=== PATIENT | female | born 1980 | race Caucasian/White ===

== ENCOUNTER 2016-12-21 15:04 | Emergency (ER) | payer BC ==
[2016-12-21 15:21] VITALS: BP 133/76
--- NOTE | 2016-12-21 15:38 | UC ---
Asthma HPI - HPI Summary HPI Summary: Cough for 3 days, nasal drainage, chest tightness, CP when coughing, c/o asthma exacerbation. Reports neg heart cath 2016. She gets this annually and is terated with alb, zpack and prednisone. + asthma hx and has never needed daily maintenance steroid, only alb prn. She last used ut 4 hrs ago at work. She does have a neb machine at home. no fevers, no sinus pain but is getting thick green mucous from nose. h/o tubal ligation. not - History of Current Complaint Chief Complaint: UCRespiratory Stated Complaint: upper respiratory,asthma Time Seen by Provider: 12/21/16 15:35 Hx Last Menstrual Period: today - Allergy/Home Medications Allergies/Adverse Reactions: Allergies Allergy/AdvReac Type Severity Reaction Status Date / Time Cefuroxime [From Ceftin] AdvReac Intermediate GI Upset Verified 12/21/16 15:20 Home Medications: Home Medications Albuterol HFA INHALER* [Ventolin HFA Inhaler*] 2 puff INH Q6H PRN 12/21/16 [ History Confirmed 12/21/16] Atorvastatin* [Lipitor 20 MG*] 20 mg PO QAM 12/21/16 [History Confirmed 12/21/16 ] PMH/Surg Hx/FS Hx/Imm Hx Previously Healthy: Yes Respiratory History: Asthma - Surgical History Surgical History: Yes Surgery Procedure, Year, and Place: T & A. GALL BLADDER REMOVAL. TUBAL LIGATION - Family History Known Family History: Positive: Cardiac Disease - father massive [place] and at age 43, Hypertension, Diabetes - Social History Alcohol Use: Occasionally Substance Use Type: None Smoking Status (MU): Former Smoker Type: Cigarettes Amount Used/How Often: 5 CIGS PPER DAY When Did the Patient Quit Smoking/Using Tobacco: 3 months ago Review of Systems Constitutional: Negative Skin: Negative Eyes: Negative ENT: Negative, Nasal Discharge Respiratory: Cough Cardiovascular: Negative Gastrointestinal: Negative Genitourinary: Negative Motor: Negative Neurovascular: Negative Musculoskeletal: Negative Neurological: Negative Psychological: Negative All Other Systems Reviewed And Are Negative: Yes Physical Exam Triage Information Reviewed: Yes Appearance: Well-Appearing, No Pain Distress, Well-Nourished, Ill-Appearing - mild cough. no stridor. speaks full senetences. Vital Signs: Initial Vital Signs Temp 97.7 F 12/21/16 15:13 Pulse 76 12/21/16 15:13 Resp 18 12/21/16 15:13 BP 133/76 12/21/16 15:13 Pulse Ox 100 12/21/16 15:13 Vital Signs Reviewed: Yes Eye Exam: Normal ENT Exam: Normal ENT: Positive: Pharynx normal - +PND, TMs normal, Other: - no max or frontal tenderness. Negative: Tonsillar swelling, Tonsillar exudate, Muffled/hoarse voice Dental Exam: Normal Neck exam: Normal Neck: Positive: Supple, Nontender, No Lymphadenopathy Respiratory: Positive: No respiratory distress, No accessory muscle use, Decreased breath sounds, Wheezing. Negative: Crackles, Rhonchi, Stridor Cardiovascular Exam: Normal Cardiovascular: Positive: RRR, No Murmur, Pulses Normal, Brisk Capillary Refill Abdominal Exam: Normal Abdomen Description: Positive: Nontender, Soft Musculoskeletal Exam: Normal Neurological Exam: Normal Psychological Exam: Normal Skin Exam: Normal Asthma Course/Dx - Course Course Of Treatment: We discusse risks of prednisone including but not limited to anxiety, agitation, insomnia, GI upset, elevated blood pressures and blood sugar readings, adrenal crisis and avascular necrosis of the hip. She states she gets this annually and is treated with zpack and prednisone. Previous prednisone dose prescribed again today. - Differential Dx/Diagnosis Differential Diagnosis/HQI/PQRI: Acute Asthma, Bronchitis, Reactive Airway Disease Provider Diagnoses: Asthma exacerbation, bronchitis. Discharge - Discharge Plan Condition: Stable Disposition: HOME Prescriptions: Albuterol 2.5MG/3ML (0.083%)* [Ventolin 2.5 MG/3 ML NEB.ANTONINO*] 2.5 mg INH Q4H #1 neb.antonino Albuterol HFA INHALER* [Ventolin HFA Inhaler*] 2 puff INH Q4H PRN #1 mdi PRN Reason: Cough Azithromyxin BRITTON (NF) [Z-Britton (Zithromax) 250 mg tabs #6] 250 mg PO .ZPAK INSTRUCTIONS #6 tab Prednisone 40 mg PO DAILY #10 tab Patient Education Materials: Bronchospasm (ED), Asthma (ED) Referrals: Sil Muse MD [Primary Care Provider] - 2 Days Additional Instructions: Increase fluids and rest. you should use albuterol every 4-6 hrs until you feel better, preferably through nebulizer form when available. Please come back if symptoms increase.
== END 2016-12-21 16:24 | disposition home or self-care (01) ==
LOC: UCCORT 15:04
DX: J45.901 Unspecified asthma with (acute) exacerbation (principal); Z90.49 Acquired absence of other specified parts of digestive tract; Z88.1 Allergy status to other antibiotic agents; Z87.891 Personal history of nicotine dependence
CPT/HCPCS: 99212; G0463

== ENCOUNTER 2017-07-16 07:33 | Emergency (ER) | payer BC, OTHER ==
[2017-07-16 08:01] VITALS: BP 128/68
--- NOTE | 2017-07-16 08:20 | UC ---
Respiratory Complaint HPI - HPI Summary HPI Summary: pt c/o cough,nasal congestion, and chest tightness X 2days. Has history of asthma. Has rescue inhaler at home, has not been using. - History of Current Complaint Chief Complaint: UCUpperExtremity Stated Complaint: LEFT SHOULDER INJURY WC Time Seen by Provider: 07/16/17 07:51 Hx Obtained From: Patient Hx Last Menstrual Period: 06/14/17 ?: No Onset/Duration: Gradual Onset, Lasting Days, Still Present Timing: Intermittent Episodes Severity Initially: Mild Severity Currently: Mild Character: Cough: Nonproductive Aggravating Factors: Allergens, Exertion, Deep Breaths, Recumbent Position Associated Signs And Symptoms: Positive: Nasal Congestion Related History: Seasonal Allergies - Risk Factors Pulmonary Embolism Risk Factors: Negative Cardiac Risk Factors: Negative Pseudomonas Risk Factors: Negative Tuberculosis Risk Factors: Negative - Allergies/Home Medications Allergies/Adverse Reactions: Allergies Allergy/AdvReac Type Severity Reaction Status Date / Time Cefuroxime [From Ceftin] AdvReac Intermediate GI Upset Verified 07/16/17 08:01 Home Medications: Home Medications Albuterol 2.5MG/3ML (0.083%)* [Ventolin 2.5 MG/3 ML NEB.ANTONINO*] 2.5 mg INH Q4H PRN 07/16/17 [History Confirmed 07/16/17] PMH/Surg Hx/FS Hx/Imm Hx Previously Healthy: Yes - lupus - Surgical History Surgical History: Yes Surgery Procedure, Year, and Place: T & A. GALL BLADDER REMOVAL. TUBAL LIGATION - Family History Known Family History: Positive: Cardiac Disease - father massive [place] and at age 43, Hypertension, Diabetes - Social History Occupation: Employed Full-time Lives: With Family Alcohol Use: Occasionally Substance Use Type: None Smoking Status (MU): Former Smoker Type: Cigarettes Amount Used/How Often: 5 CIGS PPER DAY Have You Smoked in the Last Year: Yes When Did the Patient Quit Smoking/Using Tobacco: 3 months ago Review of Systems Constitutional: Negative Skin: Negative Eyes: Negative ENT: Other - nasal congestion Respiratory: Cough Cardiovascular: Negative Gastrointestinal: Negative Genitourinary: Negative Motor: Negative Neurovascular: Negative Musculoskeletal: Negative - shoulder, Arthralgia Neurological: Negative Psychological: Negative Is Patient Immunocompromised?: No All Other Systems Reviewed And Are Negative: Yes Physical Exam Triage Information Reviewed: Yes Appearance: Well-Appearing Vital Signs: Initial Vital Signs Temp 97.7 F 07/16/17 07:55 Pulse 72 07/16/17 07:55 Resp 18 07/16/17 07:55 BP 128/68 07/16/17 07:55 Pulse Ox 99 07/16/17 07:55 Vital Signs Reviewed: Yes Eye Exam: Normal ENT Exam: Other ENT: Positive: Nasal congestion Dental Exam: Normal Neck exam: Normal Respiratory Exam: Normal Cardiovascular Exam: Normal Musculoskeletal: Positive: ROM Limited @ Neurological Exam: Normal Psychological Exam: Normal Skin Exam: Normal UC Diagnostic Evaluation - Laboratory O2 Sat by Pulse Oximetry: 99 Respiratory Course/Dx - Differential Dx/Diagnosis Differential Diagnosis/HQI/PQRI: Asthma, Bronchitis, Exacerbation Of COPD Provider Diagnoses: URI. viral syndrome Discharge - Discharge Plan Condition: Stable Disposition: HOME Prescriptions: Benzonatate CAP* [Tessalon 100 MG CAP*] 100 mg PO Q8H PRN #21 cap PRN Reason: Cough predniSONE TAB* [Deltasone TAB*] 30 mg PO DAILY #12 tab Patient Education Materials: Upper Respiratory Infection (ED), Acute Cough (ED) Referrals: Sil Muse MD [Primary Care Provider] - If Needed Additional Instructions: Please follow up with your PCP or return to clinic as needed. Please use your albuterol Inhaler as needed for Shortness of breath, wheezing and/or chest congestion.
--- NOTE | 2017-07-16 08:28 | UC ---
Shoulder Pain HPI - HPI Summary HPI Summary: pt c/o left shoulder pain s/p restaringina a client at work and stating that " he pulled my left arm backwards and I hear a pop in my left shoulder with sudden onset of pain" . Pt states that she continued to work for remainder of day without c/o of decreased ROM or significant pain or deformity. - History of Current Complaint Chief Complaint: UCUpperExtremity Stated Complaint: LEFT SHOULDER INJURY WC Time Seen by Provider: 07/16/17 07:51 Hx Obtained From: Patient Hx Last Menstrual Period: 06/14/17 ?: No Onset/Duration: Sudden Onset, Worse Since - onset 1 day ago Timing: Constant Severity Initially: Moderate Severity Currently: Mild Location Of Pain: Is Discrete @ - left shoulder Character: Dull, Aching, Stiffness Aggravating Factor(s): Movement Alleviating Factor(s): Rest Associated Signs And Symptoms: Positive: Negative Related History: Dominant Hand Right - Risk Factors Non-Orthopedic Risk Factor: Negative DVT Risk Factors: Smoking Septic Arthritis Risk Factor: Negative - Allergies/Home Medications Allergies/Adverse Reactions: Allergies Allergy/AdvReac Type Severity Reaction Status Date / Time Cefuroxime [From Ceftin] AdvReac Intermediate GI Upset Verified 07/16/17 08:01 Home Medications: Home Medications Albuterol 2.5MG/3ML (0.083%)* [Ventolin 2.5 MG/3 ML NEB.ANTONINO*] 2.5 mg INH Q4H PRN 07/16/17 [History Confirmed 07/16/17] PMH/Surg Hx/FS Hx/Imm Hx Previously Healthy: Yes - Surgical History Surgical History: Yes Surgery Procedure, Year, and Place: T & A. GALL BLADDER REMOVAL. TUBAL LIGATION - Family History Known Family History: Positive: Cardiac Disease - father massive [place] and at age 43, Hypertension, Diabetes - Social History Occupation: Employed Full-time Lives: With Family Alcohol Use: Occasionally Substance Use Type: None Smoking Status (MU): Former Smoker Type: Cigarettes Amount Used/How Often: 5 CIGS PPER DAY Have You Smoked in the Last Year: Yes When Did the Patient Quit Smoking/Using Tobacco: 3 months ago Review of Systems Constitutional: Negative Skin: Negative Eyes: Negative ENT: Negative Respiratory: Cough Cardiovascular: Negative Gastrointestinal: Negative Genitourinary: Negative Motor: Decreased ROM - left shoulder Neurovascular: Negative Musculoskeletal: Arthralgia - left shoulder, Decreased ROM - left shoulder, Myalgia Neurological: Negative Psychological: Negative Is Patient Immunocompromised?: No All Other Systems Reviewed And Are Negative: Yes Physical Exam Triage Information Reviewed: Yes Appearance: Well-Appearing Vital Signs: Initial Vital Signs Temp 97.7 F 07/16/17 07:55 Pulse 72 07/16/17 07:55 Resp 18 07/16/17 07:55 BP 128/68 07/16/17 07:55 Pulse Ox 99 07/16/17 07:55 Vital Signs Reviewed: Yes Eye Exam: Normal ENT Exam: Other ENT: Positive: Nasal congestion Dental Exam: Normal Neck exam: Normal Respiratory Exam: Normal Cardiovascular Exam: Normal Musculoskeletal Exam: Other Musculoskeletal: Positive: ROM Limited @ - left shoulder, pt tenderness at AC joint Neurological Exam: Normal Psychological Exam: Normal Skin Exam: Normal Shoulder Course/Dx - Course Course Of Treatment: IMPRESSION: Negative radiographic exam of the LEFT shoulder. - Differential Dx/Diagnosis Differential Diagnosis/HQI/PQRI: Dislocation, Fracture (Closed), Rotator Cuff Injury, Sprain, Strain Provider Diagnoses: left shoulder strain. IMPRESSION: Negative radiographic exam of the LEFT shoulder. Discharge - Discharge Plan Condition: Stable Disposition: HOME Prescriptions: Benzonatate CAP* [Tessalon 100 MG CAP*] 100 mg PO Q8H PRN #21 cap PRN Reason: Cough predniSONE TAB* [Deltasone TAB*] 30 mg PO DAILY #12 tab Patient Education Materials: Upper Respiratory Infection (ED), Acute Cough (ED) Referrals: Sil Muse MD [Primary Care Provider] - If Needed Additional Instructions: Please follow up with your PCP or return to clinic as needed. Please use your albuterol Inhaler as needed for Shortness of breath, wheezing and/or chest congestion.
--- NOTE | 2017-07-16 08:43 | RAD ---
Indication: LEFT shoulder pain following pulling injury yesterday. Comparison: No relevant prior exams available on the [facility] for comparison. Technique: Internal rotation AP, external rotation Grashey, scapular Y, axillary views LEFT shoulder Report: Normal acromioclavicular and glenohumeral joint alignment. Negative for fracture. No significant arthropathic change evident. Negative for stigmata of calcific tendinopathy. Unremarkable soft tissue contours. IMPRESSION: Negative radiographic exam of the LEFT shoulder.
== END 2017-07-16 09:01 | disposition home or self-care (01) ==
LOC: UCCORT 07:33
DX: S43.402A Unspecified sprain of left shoulder joint, initial encounter (principal); X50.0XXA Overexertion from strenuous movement or load, initial encounter; Y93.F9 Activity, other caregiving; Y92.9 Unspecified place or not applicable; Y99.0 Civilian activity done for income or pay; Z72.89 Other problems related to lifestyle; Z87.891 Personal history of nicotine dependence
CPT/HCPCS: 99211; G0463

== ENCOUNTER 2017-07-16 07:35 | Emergency (ER) | payer BC ==
[2017-07-16 08:05] VITALS: BP 128/68
--- NOTE | 2017-07-16 08:28 | UC ---
Respiratory Complaint HPI - HPI Summary HPI Summary: pt c/o cough,nasal congestion, and chest tightness X 2days. Has history of asthma. Has rescue inhaler at home, has not been using. - History of Current Complaint Chief Complaint: UCRespiratory Stated Complaint: CHEST CONGESTION ASTHMA Time Seen by Provider: 07/16/17 07:51 Hx Obtained From: Patient Hx Last Menstrual Period: 06/14/17 ?: No Onset/Duration: Gradual Onset, Lasting Days, Still Present Timing: Intermittent Episodes Severity Initially: Mild Severity Currently: Mild Character: Cough: Nonproductive Aggravating Factors: Allergens, Exertion, Deep Breaths, Recumbent Position Alleviating Factors: Spontaneous Resolution Associated Signs And Symptoms: Positive: URI, Nasal Congestion - Risk Factors Pulmonary Embolism Risk Factors: Smoking Cardiac Risk Factors: Smoking Pseudomonas Risk Factors: Chronic Lung Disease - asthma Tuberculosis Risk Factors: Smoking - Allergies/Home Medications Allergies/Adverse Reactions: Allergies Allergy/AdvReac Type Severity Reaction Status Date / Time Cefuroxime [From Ceftin] AdvReac Intermediate GI Upset Verified 07/16/17 08:01 PMH/Surg Hx/FS Hx/Imm Hx Previously Healthy: Yes - lupus Respiratory History: Asthma - Surgical History Surgical History: Yes Surgery Procedure, Year, and Place: T & A. GALL BLADDER REMOVAL. TUBAL LIGATION - Family History Known Family History: Positive: Cardiac Disease - father massive [place] and at age 43, Hypertension, Diabetes - Social History Occupation: Employed Full-time Lives: With Family Alcohol Use: Occasionally Substance Use Type: None Smoking Status (MU): Former Smoker Type: Cigarettes Amount Used/How Often: 5 CIGS PPER DAY Have You Smoked in the Last Year: Yes When Did the Patient Quit Smoking/Using Tobacco: 3 months ago Review of Systems Constitutional: Negative Skin: Negative Eyes: Negative ENT: Other - nasalcongestion Respiratory: Cough Cardiovascular: Negative Gastrointestinal: Negative Genitourinary: Negative Motor: Decreased ROM - left shoulder Neurovascular: Negative Musculoskeletal: Arthralgia - left shoulder Neurological: Negative Psychological: Negative Is Patient Immunocompromised?: No All Other Systems Reviewed And Are Negative: Yes Physical Exam Triage Information Reviewed: Yes Appearance: Well-Appearing Vital Signs: Initial Vital Signs Temp 97.7 F 07/16/17 08:02 Pulse 72 07/16/17 08:02 Resp 18 07/16/17 08:02 BP 128/68 07/16/17 08:02 Pulse Ox 99 07/16/17 08:02 Vital Signs Reviewed: Yes Eye Exam: Normal ENT Exam: Other ENT: Positive: Nasal congestion Dental Exam: Normal Neck exam: Normal Respiratory Exam: Normal Cardiovascular Exam: Normal Musculoskeletal: Positive: ROM Limited @ - left shoulder Neurological Exam: Normal Psychological Exam: Normal Skin Exam: Normal UC Diagnostic Evaluation - Laboratory O2 Sat by Pulse Oximetry: 99 Respiratory Course/Dx - Differential Dx/Diagnosis Differential Diagnosis/HQI/PQRI: Asthma, Bronchitis Provider Diagnoses: viral syndrome. cough Discharge - Discharge Plan Condition: Stable Disposition: HOME Patient Education Materials: Viral Syndrome (ED), Acute Cough (ED) Referrals: Sil Muse MD [Primary Care Provider] - If Needed Additional Instructions: Please follow up with your PCP or return to clinic as needed.
== END 2017-07-16 08:35 | disposition home or self-care (01) ==
LOC: UCCORT 07:35
DX: B34.9 Viral infection, unspecified (principal); R05 Cough; Z87.891 Personal history of nicotine dependence
CPT/HCPCS: 99212; G0463